=== PATIENT | male | born 1985 | race Caucasian/White ===

== ENCOUNTER 2020-04-06 08:08 | Emergency (ER) | payer OTHER, SELFPAY ==
[2020-04-06 08:09] VITALS: BP 166/85; PULSE 66; RESP 18; TEMP 36.7; O2SAT 97; BMI 32.1
--- NOTE | 2020-04-06 08:43 | ED_ITS ---
HPI - Back Pain/Injury General: Chief Complaint: Back Pain/Injury Stated Complaint: L HIP PAIN Time Seen by Provider: 04/06/20 08:18 History of Present Illness: Associated symptoms: Deny abdominal pain, chills, dysuria, fatigue, fever(s), hematuria, nausea or vomiting Review of Systems Const: Denies: fever(s), chills or fatigue Eyes: Denies: change in vision or eye discomfort ENMT: Denies: throat pain, odynophagia, nasal discharge or nasal congestion Card: Denies: chest pain, palpitations, edema, swelling of feet/ankles, dyspnea on exertion or orthopnea Resp: Denies: dyspnea, productive cough or non-productive cough GI: Denies: abdominal pain, nausea, vomiting, diarrhea, constipation or hematochezia : Denies: flank pain, difficulty urinating, dysuria or hematuria Musc: Denies: neck pain, back pain or extremity swelling Skin/Breast: Denies: rash or new lesions Neuro: Denies: headache(s), numbness in extremities or weakness in extremities Physical Exam Const: COMMON NORMALS: patient oriented x3 HENMT: COMMON NORMALS: normocephalic HEAD & SCALP: normocephalic MOUTH: Normal oral and palatal mucosa present THROAT: posterior oropharynx normal and uvula midline Neck/C-Spine: COMMON NORMALS: supple GENERAL: Yes normal visual inspection Resp: COMMON NORMALS: normal respiratory effort, No retractions, No use of accessory muscles and clear to auscultation bilaterally AUSCULTATION: clear to auscultation bilaterally Cardio: COMMON NORMALS: regular rate, regular rhythm, S1 normal heart sound present, S2 normal heart sound present, No gallops present (Cardio), No clicks present (Cardio), No murmurs present (Cardio) and Peripheral pulses 2+ throughout RATE: regular rate RHYTHM: regular rhythm HEART SOUNDS: S1 normal heart sound present and S2 normal heart sound present PERIPHERAL PULSES: Peripheral pulses 2+ throughout GI: COMMON NORMALS: Normal to inspection, nondistended, normoactive bowel sounds present, Soft to palpation, non-tender and no masses PALPATION: Yes Soft to palpation : COMMON NORMALS: Yes no CVA tenderness BLADDER/KIDNEY EXAM: Yes no CVA tenderness Back/Pelvis: COMMON NORMALS: no CVA tenderness Neuro: COMMON NORMALS: patient oriented x3 and moves all extremities Course Vital Signs: Vital signs: Vital Signs Temperature 98.0 F 04/06/20 08:09 Pulse Rate 66 04/06/20 08:09 Respiratory Rate 18 04/06/20 08:09 Blood Pressure 166/85 04/06/20 08:09 Pulse Oximetry 97 04/06/20 08:09 Coding Level of Care Code ED Internal Combustion Engineer for Fernando Lugo
[2020-04-06] MEDS: predniSONE 20 mg Tablet 60 MG PO (08:53)
[2020-04-06] MEDS: HYDROcodone-acetaminophen 7.5-325 mg Tablet 1 TAB PO (08:53)
--- NOTE | 2020-04-06 08:53 | CT_ITS ---
WS: [id number] CT LUMBAR SPINE TECHNIQUE: Noncontrast CT of the lumbar spine with coronal and sagittal reformatted images. CLINICAL INFORMATION: back Pain L leg radiculopathy COMPARISON: None. DLP: 2605.[address] scans at [facility] use at least one of these dose optimization techniques: automat ed exposure control; mA and/or kV adjustment per patient size (includes targeted exams where dose is matched to clinical indication); or iterative reconstruction. FINDINGS: Mild lumbar curve. No acute compression. Left L4-5 paracentral disc extrusion with inferior migration of disc material. L1-L2: Normal. L2-L3: Normal. L3-L4: Normal. L4-L5: Left pericentral disc extrusion with inferior migration of disc material. This impinges the tr aversing left L5 nerve root in the left subarticular recess. Slight impingement on the traversing lef t S1 nerve root. Moderate central canal stenosis. Extruded disc material measures 7.9 x 13.9 x 17.9 m m AP by transverse by craniocaudal. Mild left foraminal narrowing. Mild facet arthropathy. L5-S1: Mild annular bulging with a tiny central protrusion. Spinal canal and foramen are patent. Mode rate facet arthropathy. Visualized pelvic bony structures: Normal. Paravertebral soft tissues: Normal. Notified Benja Juares DO at 04/06/2020 9:[address]/CT lumbar spine wo con* [id number] IMPRESSION: 1. Large left pericentral L4-5 disc extrusion with inferior migration of disc material. Extruded disc material measures 7.9 x 13.9 x 17.9 mm AP by transverse by craniocaudal. 2. Disc extrusion impinges the left subarticular recess and traversing left L5 and left S1 nerve root. Mild to moderate central canal stenosis.
[2020-04-06 08:54] VITALS: RESP 16
--- NOTE | 2020-04-06 08:54 | ED_ITS ---
HPI - Back Pain/Injury General: Chief Complaint: Back Pain/Injury Stated Complaint: L HIP PAIN Time Seen by Provider: 04/06/20 08:18 History of Present Illness: HPI Narrative: 34-year-old male presents emergency room with complaint of low back pain. He cannot recall a particular precipitating event. 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 He is not had any difficulty with fecal incontinence or urinary retention. He not previously had any MRIs or surgeries. He complains of the pain being very sharp he has difficult time walking when he came in the room he was laying down he wanted to sit up and then stand he had minimal relief with change of position. He denies any dysuria urgency or frequency. He does notice numbness and tingling radiating down into the left leg and to the left great toe. This is a new symptom for him. MD elicited complaint: back pain Pertinent past history: prior back pain Onset (ago): day(s) Timing: constant Severity: severe Similar Symptoms Previously: Yes Quality: burning, sharp and tingling Location: lumbar spine Radiation: left upper leg and left leg below the knee Exacerbating factors: movement, sitting upright and walking Relieving factors: supine Associated symptoms: Reports difficulty walking, tingling/numbness/burning (Into the left great toe) and other (No urinary retention); Deny chills, dysuria, fatigue, fecal incontinence or fever(s) Treatments prior to arrival: NSAIDS Review of Systems Const: Denies: fever(s), chills, body aches, change in appetite, fatigue or malaise ENMT: Denies: throat pain, ear or mastoid pain, nasal discharge or nasal congestion Card: Denies: chest pain, edema, dyspnea on exertion or orthopnea Resp: Denies: dyspnea, productive cough or non-productive cough GI: Denies: fecal incontinence : Denies: dysuria Skin/Breast: Denies: rash or pruritus Neuro: Reports: difficulty walking PFSH ED PFSH: Medical History (Updated 04/06/20 @ 09:51 by Benja Juares DO) No significant medical problems Surgical History (Updated 04/06/20 @ 08:58 by Benja Juares DO) No history of previous surgery Social History (Updated 04/06/20 @ 08:58 by Benja Juares DO) Smoking and tobacco status: current every day smoker Alcohol intake: current Alcohol intake frequency: few times a week Physical Exam Const: COMMON NORMALS: no acute distress GENERAL APPEARANCE: cooperative and comfortable ORIENTATION/CONSCIOUSNESS: Yes awake, Yes oriented to person, Yes oriented to place and Yes oriented to time HENMT: COMMON NORMALS: normocephalic and atraumatic HEAD & SCALP: normocephalic and atraumatic Eye: COMMON NORMALS: Equal, round and reactive pupils present, EOMs intact bilaterally, conjunctivae normal and no scleral icterus CONJUNCTIVA: Yes conjunctivae normal PUPIL: Yes Equal, round and reactive pupils present Neck/C-Spine: COMMON NORMALS: full ROM, no lymphadenopathy, supple and no JVD Lymph: LYMPHATIC: no lymphadenopathy noted and no lymphedema noted Resp: COMMON NORMALS: normal respiratory effort, No retractions, No use of accessory muscles and clear to auscultation bilaterally AUSCULTATION: clear to auscultation bilaterally Cardio: COMMON NORMALS: no JVD, regular rate, regular rhythm and No murmurs present (Cardio) RATE: regular rate RHYTHM: regular rhythm GI: COMMON NORMALS: Soft to palpation and No hepatosplenomegaly present AUSCULTATION: Yes normoactive bowel sounds PALPATION: Yes Soft to palpation, No Tenderness to palpation present (GI), No Guarding due to palpation present (GI) and Yes No hepatosplenomegaly present Extremity: COMMON NORMALS: normal to inspection, capillary refill normal, no clubbing, cyanosis or edema, no calf tenderness and no pedal edema Neuro: SENSORIUM/ORIENTATION: Yes oriented to person, Yes oriented to place and Yes oriented to time OTHER: Patient has a negative straight leg raising test strength in lower extremities well preserved at the knee and hip flexors. He is unable to maintain dorsiflexion against resistance with the left great toe and normal with the right great toe he has diminished sensation in the L4 nerve root distribution. There is no evidence of a foot drop on the left just the left great toe dorsiflexion. Skin: COMMON NORMALS: no rashes or lesions noted GENERAL SKIN EXAM: no rashes or lesions noted Course Vital Signs: Vital signs: Vital Signs Temperature 98.0 F 04/06/20 08:09 Pulse Rate 70 04/06/20 09:57 Respiratory Rate 14 04/06/20 09:57 Blood Pressure 138/85 04/06/20 09:57 Pulse Oximetry 95 04/06/20 09:57 MDM - Back Pain/Injury MDM Narrative: Medical decision making narrative: Reviewed exam findings the patient he does have an L4-5 radiculopathy that is showing signs on physical exam. Plain x-rays and CT would not be particularly helpful at this juncture and changing care plan. Think we do need to get him set up for an MRI we will get him referred to PCP and to neurosurgery advised he not lifting more than 20 pounds if he has significant worsening symptoms return. We discussed possibly getting a CT of his lumbar spine but he does not have any evidence of cauda equina syndrome and even if he has a CT he will still require an MRI. Discharge Plan Discharge Patient Disposition: Home Clinical Impression: Lumbar radiculopathy Condition: Stable Prescriptions: New hydrocodone-acetaminophen 5-325 mg tablet 1 tab PO Q6H PRN (Reason: pain) Qty: 20 RF: 0 diclofenac sodium 75 mg tablet,delayed release (DR/EC) 75 mg PO Q12H PRN (Reason: pain) Qty: 60 RF: 0 tizanidine 4 mg capsule 2 - 4 mg PO Q6H PRN (Reason: muscle spasticity) Qty: 30 RF: 0 Medrol (Chidi) 4 mg tablets,dose pack See Rx Instructions .ROUTE .COMPLEX Qty: 21 RF: 0 Discharge Orders: Discharge Order (Routine); Ordered 04/06/20 Ordered By: Benja Juares Discharge Diet: Usual diet Discharge Activity: Limit activity as instructed Activity Restrictions/Additional Instructions: No lifting greater than 20 pounds. Case management will call with referral for PCP neurosurgery and MRI of the lumbar spine. If you have worsening problems recheck. Discharge Date/Time: 04/06/20 09:57 Coding Level of Care Code ED Winchman/Crane Operator for Fernando Fwdoc Exam Comprehensive
[2020-04-06 09:57] VITALS: BP 138/85; PULSE 70; RESP 14; O2SAT 95
--- NOTE | 2020-04-07 13:06 | DCPLANNER ---
staff training and development manager had message to schedule an outpatient MRI, speak with patient about getting a primary care physician, and a referral to neurosurgery in [place]. staff training and development manager called [phone] - this number is no longer in service, director of casework called [phone] this number in is no longer in service. staff training and development manager also called [phone] - there was no answer to this number, and could not leave a voicemail due to voicemail box is full.
== END 2020-04-06 09:57 | disposition home or self-care (01) ==
PROVIDERS: Emergency Provider Family Medicine; PCP Family Medicine
DX: M54.16 Radiculopathy, lumbar region (principal); F17.210 Nicotine dependence, cigarettes, uncomplicated
CPT/HCPCS: 12345; 72131; 99282; 99283; J7512